=== PATIENT | female | born 1975 | race Caucasian/White ===

== ENCOUNTER 2018-10-06 19:35 | Emergency (ER) | payer MEDICAID ==
[~2018-10-06] VITALS: Ht 162.6 cm; Wt 106.6 kg
[~2018-10-06 19:35] MED LIST: IBUP-1955 PO
[2018-10-06 20:01] LABS: *BILIRUBIN,URIN NEGATIVE (NEGATIVE); *BLOOD, URINE Trace-intact (NEGATIVE); *CLARITY,URINE SLIGHTLY CLOUDY (CLEAR); *COLOR,URINE YELLOW (YELLOW); *KETONES,URINE NEGATIVE (NEGATIVE); *UROBILINOGEN,URINE 0.2 E.U./dl (NORMAL); LEUKOCYTE ESTERASE ,URINE NEGATIVE (NEGATIVE); NITRITE, URINE NEGATIVE (NEGATIVE); PH,URINE 6.5 (5.0-8.0); UGLUCOSE NEGATIVE (NEGATIVE)
--- NOTE | 2018-10-06 20:04 | NUR ---
Pt ambulated to ER with c/o left flank pain x 6 days. Denies dysuria/diarrhea/constipation. No chest pain/sob. Pt also c/o left heel numbness x 2 weeks, which pt states she has already told her PCP about. No other c/o. AAOx4. Speech clear. Facial smile symmetric. 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
[2018-10-06 20:06] LABS: BACTERIA,URINE FEW /HPF (NONE SEEN); SQUAMOUS EPITHELIAL CELL,UR FEW /HPF (NONE SEEN); WBC,URINE 0-3 /HPF (0-3)
--- NOTE | 2018-10-06 20:09 | NUR ---
Dr. Deedee CASTRO MD at bedside to evaluate pt.
[2018-10-06] MEDS ORDERED: ONDANSETRON 4 MG/2 ML VIAL IV ONE (20:15)
[2018-10-06] MEDS ORDERED: MORPHINE SULFATE 2 MG/1 ML DISP.SYRIN IV ONE (20:15)
[2018-10-06 20:34] LABS: BASOPHILS # (AUTO) 0.2 K/uL (0.0-8.0); BASOPHILS % (AUTO) 1.1 % (0.0-2.0); EOSINOPHILS # (AUTO) 0.2 K/uL (0.0-0.7); HEMATOCRIT 40.5 % (31.2-41.9); HEMOGLOBIN 13.4 g/dL (10.9-14.3); LYMPHOCYTES # (AUTO) 5.1 K/uL (20.0-40.0); MEAN CORPUSCULAR HEMOGLOBIN 29.4 uug (24.7-32.8); MEAN CORPUSCULAR HGB CONC 33 g/dL (32.3-35.6); MEAN CORPUSCULAR VOLUME 88.8 fL (75.5-95.3); MONOCYTES # (AUTO) 0.8 K/uL (2.0-10.0); MONOCYTES % (AUTO) 4.6 % (0.0-11.0); NEUTROPHILS # (AUTO) 11.4 K/uL (1.8-8.9); NEUTROPHILS % (AUTO) 64.3 % (38.5-71.5); PLATELET COUNT (AUTO) 419 K/uL (179-408); RED BLOOD CELL COUNT(AUTO) 4.56 MIL/uL (3.63-4.92); WHITE BLOOD COUNT (AUTO) 17.7 K/uL (3.8-11.8)
[2018-10-06] MEDS ORDERED: MORPHINE SULFATE 2 MG/1 ML DISP.SYRIN ONE (20:37)
[2018-10-06] MEDS ORDERED: ONDANSETRON 4 MG/2 ML VIAL ONE (20:37)
[2018-10-06 20:43] LABS: CARBON DIOXIDE 27 mmol/L (21-32); CHLORIDE 101 mmol/L (98-107); CREATININE 0.8 mg/dL (0.6-1.3); GLUCOSE 100 mg/dL (74-106); POTASSIUM 3.9 mmol/L (3.5-5.1); UREA NITROGEN, BLOOD 13 mg/dL (7-18)
[2018-10-06 20:49] LABS: ALANINE AMINOTRANSFERASE 20 U/L (14-59); ALKALINE PHOSPHATASE 85 U/L (50-136); ASPARTATE AMINOTRANSFERASE 9 U/L (15-37); BILIRUBIN,DIRECT < 0.1 mg/dL (0.0-0.2); BILIRUBIN,TOTAL 0.2 mg/dL (0.2-1.0); TOTAL PROTEIN, SERUM 7.6 g/dL (6.4-8.2)
[2018-10-06] MEDS ORDERED: MORPHINE SULFATE 4 MG/1 ML DISP.SYRIN ONE (20:59)
[2018-10-06] MEDS ORDERED: MORPHINE SULFATE 4 MG/1 ML DISP.SYRIN IV ONE (21:00)
[2018-10-06] MEDS ORDERED: IV NORMAL SALINE 1000 ML BAG IV ONE (21:00)
[2018-10-06] MEDS ORDERED: PANTOPRAZOLE SODIUM 40 MG VIAL IV ONE (21:15)
[2018-10-06] MEDS ORDERED: PANTOPRAZOLE SODIUM 40 MG VIAL ONE (21:19)
--- NOTE | 2018-10-06 21:21 | NUR ---
Pt went down to radiology dept for CT scan. NAD noted.
--- NOTE | 2018-10-06 21:44 | NUR ---
Pt back from radiology dept back in room 4B. No acute distress noted.
[2018-10-06] MEDS ORDERED: MAG HYDROX/AL HYDROX/SIMETH 30 ML LIQUID UDC PO ONE (22:30)
[2018-10-06] MEDS ORDERED: MAG HYDROX/AL HYDROX/SIMETH 30 ML LIQUID UDC ONE (22:30)
[2018-10-06] MEDS ORDERED: LIDOCAINE VISCUS 2% 15 ML UDC MM ONE (22:30)
[2018-10-06] MEDS ORDERED: LIDOCAINE VISCUS 2% 15 ML UDC ONE (22:30)
--- NOTE | 2018-10-06 22:45 | NUR ---
IV removed. Catheter intact and site benign. Pressure and 4x4 gauze applied to site. No bleeding noted.
--- NOTE | 2018-10-06 22:52 | NUR ---
Patient discharged to home in stable conditon. Written and verbal after care instructions given. Patient verbalizes understanding of instructions. Pt ambulated out of ER w stable gait. No acute distress noted. No episodes of emesis. Pt states she will take a Lyft back to her home.
[2018-10-06 22:53] VITALS: BP 116/74
== END 2018-10-06 22:54 | disposition home or self-care (01) ==
LOC: ER 19:35
DX: M54.42 Lumbago with sciatica, left side (principal); K21.9 Gastro-esophageal reflux disease without esophagitis; F17.210 Nicotine dependence, cigarettes, uncomplicated; Z90.710 Acquired absence of both cervix and uterus; Z90.49 Acquired absence of other specified parts of digestive tract; Z79.1 Long term (current) use of non-steroidal anti-inflammatories (NSAID)
CPT/HCPCS: 36415; 74176; 80048; 80076; 81001; 84702; 85025; 96374; 96375; 99284; C9113; J2270 ×2; J2405; A4663; J7030

== ENCOUNTER 2020-08-29 20:25 | Emergency (ER) | payer MEDICAID, OTHER ==
[~2020-08-29] VITALS: Ht 162.6 cm; Wt 109.0 kg
[2020-08-29] MEDS ORDERED: GABA-534 PO (20:36)
[2020-08-29] MEDS ORDERED: CLON1TAB PO (20:36)
[2020-08-29] MEDS ORDERED: OXYC-128 PO (20:36)
[2020-08-29] MEDS ORDERED: TRAZ150T75 PO (20:36)
[2020-08-29] MEDS ORDERED: MELA3TAB41 PO (20:36)
[2020-08-29] MEDS ORDERED: PANT40TA2 PO (20:36)
--- NOTE | 2020-08-29 20:43 | NUR ---
PATIENT CAME INTO ER VIA WHEELCHAIR FOR C/O BILATERAL KNEE PAIN WITH LEFT KNEE WORSE. AFTER TRIPPING ON LOOSE BRICKS ON THE FLOOR.
--- NOTE | 2020-08-29 20:44 | NUR ---
DR TIM INTO EVAL PATIENT.
[2020-08-29] MEDS ORDERED: LIDOCAINE VISCUS 2% 15 ML UDC ONE (20:51)
[2020-08-29] MEDS ORDERED: LIDOCAINE VISCUS 2% 15 ML UDC MM ONE (21:00)
[2020-08-29] MEDS ORDERED: OXYCODONE/APAP 5-325 MG TABLET PO ONE (21:00)
[2020-08-29] MEDS ORDERED: ONDANSETRON ODT 4 MG TAB.RAPDIS SL ONE (21:00)
[2020-08-29] MEDS ORDERED: ONDANSETRON ODT 4 MG TAB.RAPDIS ONE (21:01)
[2020-08-29] MEDS ORDERED: OXYCODONE/APAP 5-325 MG TABLET ONE (21:01)
[2020-08-29 22:49] VITALS: BP 125/78
--- NOTE | 2020-08-29 22:49 | NUR ---
Patient discharged to home in stable condition. Written and verbal after care instructions given. Patient verbalizes understanding of instructions. Stressed follow up or return to ER for worsening s/s.
== END 2020-08-29 22:50 | disposition home or self-care (01) ==
LOC: ER 20:32
DX: S80.02XA Contusion of left knee, initial encounter (principal); S80.01XA Contusion of right knee, initial encounter; S80.212A Abrasion, left knee, initial encounter; S80.211A Abrasion, right knee, initial encounter; W10.9XXA Fall (on) (from) unspecified stairs and steps, initial encounter; Y92.89 Other specified places as the place of occurrence of the external cause; Y99.0 Civilian activity done for income or pay; G89.4 Chronic pain syndrome; F17.210 Nicotine dependence, cigarettes, uncomplicated; Z90.49 Acquired absence of other specified parts of digestive tract; F41.9 Anxiety disorder, unspecified; Z79.899 Other long term (current) drug therapy; K21.9 Gastro-esophageal reflux disease without esophagitis
CPT/HCPCS: A4663; Q0162

== ENCOUNTER 2024-05-04 17:17 | Emergency (ER) | payer MEDICAID, OTHER ==
[~2024-05-04] VITALS: Ht 172.7 cm; Wt 154.2 kg
[~2024-05-04 17:17] MED LIST changes: +CLON1TAB PO; +GABA-534 PO; -IBUP-1955 PO; +MELA3TAB41 PO; +OXYC-128 PO; +PANT40TA2 PO; +TRAZ150T75 PO
[2024-05-04 18:03] LABS: BASOPHILS # (AUTO) 0.1 K/UL (0.0-0.2); BASOPHILS % (AUTO) 0.8 % (0.0-2.0); EOSINOPHILS # (AUTO) 0.1 K/uL (0.0-0.7); EOSINOPHILS % (AUTO) 0.6 % (0.0-7.0); HEMATOCRIT 34.7 % (31.2-41.9); HEMOGLOBIN 11.4 g/dL (10.9-14.3); LYMPHOCYTES # (AUTO) 3.1 K/uL (0.8-4.8); MEAN CORPUSCULAR HGB CONC 33 g/dL (32.3-35.6); MEAN CORPUSCULAR VOLUME 91.3 fL (75.5-95.3); MONOCYTES # (AUTO) 0.8 K/uL (0.1-1.30); MONOCYTES % (AUTO) 5.2 % (0.0-11.0); NEUTROPHILS # (AUTO) 11.5 K/uL (1.8-8.9); NEUTROPHILS % (AUTO) 73.4 % (38.5-71.5); PLATELET COUNT (AUTO) 358 K/uL (179-408); RED CELL DISTRIBUTION WIDTH 14.9 % (12.3-17.7); WHITE BLOOD COUNT (AUTO) 15.6 K/uL (3.8-11.8)
[2024-05-04] MEDS ORDERED: LORAZEPAM 2 MG/1 ML VIAL ONE ×2 (18:03→20:30)
[2024-05-04] MEDS ORDERED: HYDROMORPHONE 1 MG/1 ML DISP.SYRIN ONE ×2 (18:04→20:30)
[2024-05-04] MEDS ORDERED: MAGNESIUM SULFATE/D5W 200 ML ONE (18:04)
[2024-05-04] MEDS ORDERED: METOPROLOL TARTRATE 50 MG TABLET ONE (18:05)
[2024-05-04] MEDS ORDERED: METOPROLOL TARTRATE 5 MG/5 ML VIAL IVP ONE (18:05)
[2024-05-04] MEDS ORDERED: ASPIRIN 81 MG TAB.CHEW ONE (18:05)
[2024-05-04] MEDS ORDERED: NITROGLYCERIN OINT 1 GM PACKET TP ONE (18:06)
[2024-05-04 18:08] LABS: DIFFERENTIAL COMMENT 1
[2024-05-04] MEDS: HYDROMORPHONE 1 MG/1 ML DISP.SYRIN IV ONE ×2 (18:09→20:41)
[2024-05-04] MEDS: LORAZEPAM 2 MG/1 ML VIAL IV ONE ×2 (18:09→20:35)
[2024-05-04] MEDS: MAGNESIUM SULFATE 2 GM in IV DEXTROSE 5% 100 ML IV ONE (18:10)
[2024-05-04] MEDS: ASPIRIN 81 MG TAB.CHEW PO ONE (18:10)
[2024-05-04] MEDS: METOPROLOL TARTRATE 50 MG TABLET PO ONE (18:11)
[2024-05-04] MEDS ORDERED: CLON0.5T PO (18:13)
[2024-05-04] MEDS ORDERED: MELA3TAB47 PO (18:13)
[2024-05-04] MEDS ORDERED: OMEG-162 PO (18:13)
[2024-05-04] MEDS ORDERED: LINA145C PO (18:13)
[2024-05-04] MEDS ORDERED: HYDR-3980 PO (18:13)
[2024-05-04] MEDS ORDERED: TRAZ-257 PO (18:13)
[2024-05-04] MEDS ORDERED: METF-440 PO (18:13)
[2024-05-04] MEDS ORDERED: PANT40TA49 PO (18:13)
[2024-05-04] MEDS ORDERED: GABA-532 PO (18:13)
[2024-05-04] MEDS ORDERED: SUCR1TAB PO (18:13)
[2024-05-04] MEDS ORDERED: ROSU20TA2 PO (18:13)
[2024-05-04] MEDS ORDERED: LEVO25TA9 PO (18:13)
[2024-05-04] MEDS ORDERED: OLME20TA13 PO (18:13)
[2024-05-04] MEDS ORDERED: METO-295 PO (18:13)
[2024-05-04 18:14] LABS: CALCIUM 8.8 mg/dL (8.5-10.1); CARBON DIOXIDE 30 mmol/L (21-32); CHLORIDE 103 mmol/L (98-107); CREATININE 0.7 mg/dL (0.6-1.3); GLUCOSE 87 mg/dL (74-106); POTASSIUM 4.4 mmol/L (3.5-5.1); SODIUM SERUM 139 mmol/L (136-145); UREA NITROGEN, BLOOD 14 mg/dL (7-18)
[2024-05-04 18:26] LABS: ALANINE AMINOTRANSFERASE 102 U/L (14-59); ALBUMIN 3.4 g/dL (3.4-5.0); ALKALINE PHOSPHATASE 83 U/L (50-136); ASPARTATE AMINOTRANSFERASE 127 U/L (15-37); BILIRUBIN,DIRECT 0.1 mg/dL (0.0-0.2); BILIRUBIN,TOTAL 0.3 mg/dL (0.2-1.0); TOTAL PROTEIN, SERUM 6.8 g/dL (6.4-8.2)
[2024-05-04] MEDS ORDERED: IOHEXOL 350 100 ML INFUS..BTL ONE (18:54)
[2024-05-04] MEDS ORDERED: IV NORMAL SALINE 250 ML IV ONE (18:54)
[2024-05-04] MEDS ORDERED: SWABABLE VALVE TRANSFER SET EA MC ONE (18:54)
[2024-05-04] MEDS: METOPROLOL TARTRATE 5 MG/5 ML VIAL IVP ONE (19:15)
[2024-05-04 19:30] VITALS: BP 122/75
[2024-05-04] MEDS: NITROGLYCERIN OINT 1 GM PACKET TP ONE (19:30)
[2024-05-04] MEDS ORDERED: ONDANSETRON 4 MG/2 ML VIAL ONE (22:55)
[2024-05-04] MEDS: ONDANSETRON 4 MG/2 ML VIAL IV ONE (23:00)
[2024-05-05] VITALS: O2SAT 98
[2024-05-05] MEDS ORDERED: KETOROLAC TROMETHAMINE 30 MG INJ ONE (02:04)
[2024-05-05] MEDS: KETOROLAC TROMETHAMINE 30 MG INJ IVP ONE (02:10)
== END 2024-05-05 02:15 | disposition short-term general hospital (02) ==
LOC: ER 17:18
DX: I24.9 Acute ischemic heart disease, unspecified (principal); K21.9 Gastro-esophageal reflux disease without esophagitis; F41.9 Anxiety disorder, unspecified; F17.210 Nicotine dependence, cigarettes, uncomplicated; Z20.822 Contact with and (suspected) exposure to COVID-19; Z79.84 Long term (current) use of oral hypoglycemic drugs; Z79.890 Hormone replacement therapy; Z79.899 Other long term (current) drug therapy; Z90.49 Acquired absence of other specified parts of digestive tract; Z96.651 Presence of right artificial knee joint; Z90.710 Acquired absence of both cervix and uterus; Z88.0 Allergy status to penicillin
CPT/HCPCS: 99285; 74177; 96365; 96375 ×2; 71045; 87426; 80076; 80048; 85025; 85379; 85730; 84484 ×3; 36415; 93005; 96376; J2060 ×2; J3475 ×2; J3490; J2405; Q9967; J1170 ×2; J1885; A4606; A4663